=== PATIENT | female | born 1975 | race Caucasian/White ===

== ENCOUNTER 2020-06-02 10:59 | Outpatient (REF) | payer MEDICAID, SELFPAY ==
--- NOTE | 2020-06-02 | US_ITS ---
EXAMINATION: US PELVIS, COMPLETE CLINICAL INFORMATION: Leiomyoma of uterus. COMPARISON: None TECHNIQUE: Transabdominal and transvaginal imaging was performed. FINDINGS: LMP: 05/16/2020 Uterus is retroverted, measuring 10 x 5 x 6.2 cm. Hypoechoic focus measuring 1.2 x 1 x 1.2 cm in the posterior body myometrium, probable fibroid. Nabothian cysts in the cervix. Small fluid in the endometrial canal of the lower uterine segment. Endometrial thickness 0.6 cm. Right ovary measures 2.8 x 1.7 x 1.9 cm. Volume 4.7 mL. Left ovary measures 2.6 x 1.6 x 2.4 cm. Volume 5.2 mL. Complex 1.3 x 1.2 x 1 cm focus in the left ovary, probable corpus luteal cyst. Small free fluid in the cul-de-sac. US/US pelvic complete IMPRESSION: 1. Hypoechoic 1.2 x 1 x 1.2 cm myometrial focus, probable fibroid. 2. Small fluid in the lower uterine segment endometrial canal, nonspecific. 3. Left ovarian 1.3 cm complex cyst, probable corpus luteal cyst.
--- NOTE | 2020-06-02 | US_ITS ---
EXAMINATION: US PELVIS, COMPLETE CLINICAL INFORMATION: Leiomyoma of uterus. COMPARISON: None TECHNIQUE: Transabdominal and transvaginal imaging was performed. FINDINGS: LMP: 05/16/2020 Uterus is retroverted, measuring 10 x 5 x 6.2 cm. Hypoechoic focus measuring 1.2 x 1 x 1.2 cm in the posterior body myometrium, probable fibroid. Nabothian cysts in the cervix. Small fluid in the endometrial canal of the lower uterine segment. Endometrial thickness 0.6 cm. Right ovary measures 2.8 x 1.7 x 1.9 cm. Volume 4.7 mL. Left ovary measures 2.6 x 1.6 x 2.4 cm. Volume 5.2 mL. Complex 1.3 x 1.2 x 1 cm focus in the left ovary, probable corpus luteal cyst. Small free fluid in the cul-de-sac. US/US transvaginal IMPRESSION: 1. Hypoechoic 1.2 x 1 x 1.2 cm myometrial focus, probable fibroid. 2. Small fluid in the lower uterine segment endometrial canal, nonspecific. 3. Left ovarian 1.3 cm complex cyst, probable corpus luteal cyst.
--- NOTE | 2020-06-02 11:10 | XR_ITS ---
EXAMINATION: XR SCOLIOSIS CLINICAL INFORMATION: Scoliosis COMPARISON: Radiographs of the thoracic and lumbar spine 08/28/2019 TECHNIQUE: A single view of the thoracolumbar spine is obtained. FINDINGS: There are no intrinsic vertebral anomalies. There is a right convex curvature of the thoracic spine, apex at T8, measuring 42 degrees. There is a left convex curvature of the thoracolumbar spine, apex at L2, measuring 29 degrees. There is no significant pelvic tilt. Risser 5. XR/XR scoliosis survey IMPRESSION: Thoracolumbar scoliosis as above.
== END 2020-06-02 11:00 | disposition home or self-care (01) ==
LOC: HO.US 10:59
PROVIDERS: Absent Provider Physical Medicine & Rehabilitation; PCP Registered Nurse; Visit Provider Registered Nurse
DX: M41.9 Scoliosis, unspecified (principal); D25.9 Leiomyoma of uterus, unspecified; Z71.89 Other specified counseling
CPT/HCPCS: 72082; 76830; 76856

== ENCOUNTER 2020-06-10 10:36 | Outpatient (REF) | payer MEDICAID, SELFPAY ==
--- NOTE | 2020-06-10 10:40 | MM_ITS ---
EXAMINATION: MM SCREENING DIGITAL BREAST TOMOSYNTHESIS, BILATERAL CLINICAL INFORMATION: Screening. Asymptomatic. The lifetime risk of breast cancer based on the Tyrer-Cuzick Model is 8%. COMPARISON: Mammography: 12/04/2017 TECHNIQUE: Digital breast tomosynthesis is performed in both the craniocaudal and mediolateral oblique views along with computer-aided detection (CAD). Synthesized 2D images are generated from the tomosynthesis. FINDINGS: The breasts are heterogeneously dense, which may obscure small masses (ACR BI-RADS breast composition Category c). There is inhomogeneous fibrocystic interval pattern with multiple bilateral smooth and partially obscured round and oval areas of waxing and waning masses. There is no architectural abnormality or interval focal dominant significant mass. Again, there are numerous bilateral punctate and some scattered coarse calcifications in each breast. No interval focal abnormal calcifications. The bilateral axilla and skin contours are unremarkable. MM/MM tomosynthesis screening BI IMPRESSION: Fibrocystic parenchymal pattern with waxing and waning masses and diffuse bilateral calcifications again seen. ASSESSMENT: BI-RADS 2: Benign RECOMMENDATION: Routine annual mammography screening. This patient's information was entered into a reminder system with a target due date for their next mammogram.
== END 2020-06-10 10:37 | disposition home or self-care (01) ==
LOC: HO.MAMMO 10:36
PROVIDERS: PCP Registered Nurse; Visit Provider Registered Nurse
DX: Z12.31 Encounter for screening mammogram for malignant neoplasm of breast (principal)
CPT/HCPCS: 77063; 77067

== ENCOUNTER 2021-02-22 10:12 | Outpatient (REF) | payer MEDICAID, SELFPAY ==
--- NOTE | ~2021-02-22 | XR_ITS ---
EXAMINATION: XR CERVICAL SPINE CLINICAL INFORMATION: Cervical radiculopathy. COMPARISON: None TECHNIQUE: Frontal, odontoid, bilateral oblique and lateral views of the cervical spine were obtained. FINDINGS: Vertebral body heights are normal. There is reversal of the normal lordotic curvature. The disc spaces are well-maintained. No acute fracture or spondylolisthesis is seen. There is anterior spondylosis of the C5 and C6 lower endplates. The posterior elements are intact. The bilateral neural foramina appear patent on the oblique views. The dens and C7-T1 interface are normal. There is no prevertebral soft tissue swelling or gas XR/XR thoracic spine 2V IMPRESSION: 1. No acute fracture or spondylolisthesis is seen. 2. There is reversal of the normal lordotic curvature, which can be associated with muscle spasm. 3. The disc spaces are well-maintained. 4. There is mild anterior spondylosis of the C5 and C6 lower endplates. 5. The bilateral neural foramina appear patent. EXAMINATION: XR THORACIC SPINE CLINICAL INFORMATION: Dorsalgia. COMPARISON: Radiographs dated 08/28/2019. TECHNIQUE: AP and lateral views of the thoracic spine were obtained. FINDINGS: There is bony demineralization. Again, there is a marked thoracic dextroscoliosis, similar in extent to prior. Again, this shows a rotatory component. There is leftward disc space narrowing at C5-C6 and C6-C7. The remaining disc spaces are relatively well-maintained. No acute fracture or spondylolisthesis is seen. The posterior elements are intact. The soft tissue planes are unremarkable. IMPRESSION: A marked thoracic dextroscoliosis is redemonstrated.
--- NOTE | ~2021-02-22 | XR_ITS ---
EXAMINATION: XR CHEST 2 VIEWS CLINICAL INFORMATION: Solitary pulmonary nodule. COMPARISON: None. TECHNIQUE: Frontal and lateral views of the chest were obtained. FINDINGS: The heart, great vessels, pulmonary vasculature and mediastinum are normal. The lungs show no focal infiltrate, effusion or pneumothorax. No mass, nodule or lymphadenopathy is seen. There is no acute osseous abnormality. There is a marked thoracic dextroscoliosis. XR/XR chest 2V IMPRESSION: No active cardiopulmonary disease.
--- NOTE | ~2021-02-22 | XR_ITS ---
EXAMINATION: XR CERVICAL SPINE CLINICAL INFORMATION: Cervical radiculopathy. COMPARISON: None TECHNIQUE: Frontal, odontoid, bilateral oblique and lateral views of the cervical spine were obtained. FINDINGS: Vertebral body heights are normal. There is reversal of the normal lordotic curvature. The disc spaces are well-maintained. No acute fracture or spondylolisthesis is seen. There is anterior spondylosis of the C5 and C6 lower endplates. The posterior elements are intact. The bilateral neural foramina appear patent on the oblique views. The dens and C7-T1 interface are normal. There is no prevertebral soft tissue swelling or gas XR/XR cervical spine 4V IMPRESSION: 1. No acute fracture or spondylolisthesis is seen. 2. There is reversal of the normal lordotic curvature, which can be associated with muscle spasm. 3. The disc spaces are well-maintained. 4. There is mild anterior spondylosis of the C5 and C6 lower endplates. 5. The bilateral neural foramina appear patent. EXAMINATION: XR THORACIC SPINE CLINICAL INFORMATION: Dorsalgia. COMPARISON: Radiographs dated 08/28/2019. TECHNIQUE: AP and lateral views of the thoracic spine were obtained. FINDINGS: There is bony demineralization. Again, there is a marked thoracic dextroscoliosis, similar in extent to prior. Again, this shows a rotatory component. There is leftward disc space narrowing at C5-C6 and C6-C7. The remaining disc spaces are relatively well-maintained. No acute fracture or spondylolisthesis is seen. The posterior elements are intact. The soft tissue planes are unremarkable. IMPRESSION: A marked thoracic dextroscoliosis is redemonstrated.
== END 2021-02-22 10:13 | disposition home or self-care (01) ==
LOC: HO.XRAY 10:12
PROVIDERS: PCP Registered Nurse; Visit Provider Registered Nurse
DX: M54.12 Radiculopathy, cervical region (principal); M54.9 Dorsalgia, unspecified; R91.1 Solitary pulmonary nodule
CPT/HCPCS: 71046; 72050; 72070

== ENCOUNTER 2021-07-01 10:21 | Outpatient (REF) | payer MEDICAID, SELFPAY ==
--- NOTE | ~2021-07-01 | XR_ITS ---
EXAMINATION: XR CHEST CLINICAL INFORMATION: Post Covid 19 COMPARISON: 02/22/2021 TECHNIQUE: 2 views of the chest were obtained. FINDINGS: There is no evidence of acute parenchymal disease, pneumothorax, or pleural effusion. Heart normal size. No evidence of pulmonary edema. There is significant scoliosis of the thoracic spine convex right. XR/XR chest 2V IMPRESSION: No acute parenchymal disease. Scoliosis.
== END 2021-07-01 10:22 | disposition home or self-care (01) ==
LOC: HO.XRAY 10:21
PROVIDERS: PCP General Practice; Visit Provider General Practice
DX: U09.9 Post COVID-19 condition, unspecified (principal)
CPT/HCPCS: 71046

== ENCOUNTER 2024-08-19 11:08 | Outpatient (REF) | payer MEDICAID, SELFPAY ==
--- OUTSIDE RECORDS SUMMARY | 2024-08-19 12:22 | XMS_ITS | Encounter Summary ---
Author Organization [facility] Address [address] [facility] 7[address] [place] [address] Care Team Providers Care Floor Coverer Apprentice Name Role Phone Lelia Marshall MD Primary Care Provider [phone] Reason for Visit * Reason Onset Date Comments Med Refill 03/26/2024 Encounter Details Date Type Department Care Team (Late st Contact Info) Description 03/26/[address] [facility] [address] [place], [place] [phone] Stephen Kirk MD [address] [place] [address] Acute left-sided low back pain without sciatica Social History Tobacco Use Types Packs/Day Years Used Date Smoking Tobacco: Never Passive Smoke Exposure: Never Smokeless Tobacco: Never Alcohol Use Standard Drinks/Week Comments Never 0 (1 standard drink = 0.6 oz pur e alcohol) Housing Stability Answer Date Recorded What is your housing situation today? I have kerrie chin 05/08/[address] you li ve. Do you have problems with any of the following? None of the above 05/08/2023 Food Insecurity Answer Date Recorded Within the past 12 months, y ou worried that your food would run out before you got money to buy more: Never True 05/08/2023 Within the past 12 months,th e food you bought just didn't last and you didn't have enough money to get more: Never True Transportation Answer Date Recorded In the past 12 months, has l ack of transportation kept you from medical appts, meetings, work or from getting things needed for daily living? No 05/08/2023 Utilities Answer Date Recorded In the past 12 months, has t he electric, gas, oil or water company threatened to shut off services in your home? No 05/08/2023 Comments Unknown Sex and Gender Information Value Date Recorded Sex Assigned at Female 05/22/2022 10:33 AM EDT Legal Sex Female 10:33 AM EDT Gender Identity Female 05/22/2022 10:33 AM EDT Sexual Orientation Straight 05/22/2022 10 :33 AM EDT documented as of this encounter Plan of Treatment Upcoming Encounters Date Type Department Care Team (Late st Contact Info) Description 10/10/2024 9:45 AM EDT Procedure Visit [facility] [address] [place], [place] [phone] Lelia Marshall MD [address] [place] [address] documented as of this encounter Visit Diagnoses Diagnosis Acute left-sided low back pain without sciatica documented in this encounter Care Teams Floor Coverer Apprentice Relationship Specialty Start Date End Date Lelia Marshall MD [address] [place] [id number] PCP - General Family Medicine 03/14/21 documented as of this encounter
--- OUTSIDE RECORDS SUMMARY | 2024-08-19 12:22 | XMS_ITS | Encounter Summary ---
Author Organization [facility] Address [address] [facility] [address] [place] [address] Care Team Providers Care Lcsw Name Role Phone Lelia Marshall MD Primary Care Provider [phone] Reason for Visit * Reason Onset Date Comments Med Refill 08/07/2023 Encounter Details Date Type Department Care Team ([facility] st Contact Info) Description 08/07/2023 Refill [facility] [address] [place], [place] [phone] Andreina Haley MD [address] [place] [address] Social History Tobacco Use Types Packs/Day Years [...] 9:45 AM EDT Procedure Visit [facility] [address] [place] [address] Lelia Marshall MD [address] [place] [phone] documented as of this encounter Visit Diagnoses Not on filedocumented in this encounter Care Teams Lcsw Relationship Specialty Start Date End Date Lelia Marshall MD [address] [place] [id number] PCP - General Family Medicine 03/14/21 documented as of this encounter
--- OUTSIDE RECORDS SUMMARY | 2024-08-19 12:22 | XMS_ITS | Clinical Summary ---
Author Organization [employer] Address [address] [facility] [address] [place] [address] Care Team Providers Care Associate Art Director Name Role Phone Lelia Marshall MD Primary Care Provider [phone] Allergies No known active allergies Medications fluticasone (Flonase) 50 MCG/ACT nasal sprayIndication s:Bronchitis INSTILL 2 SPRAYS IN EACH NOSTRIL ONCE DAILY IN THE MORNING 48 g 1 05/08/20 23 Active Mometasone Furoate (Asmanex HFA) 200 MCG/ACT aerosol Use 2 puffs BID 13 g 11 10/22/19 24 Active loratadine (Claritin) 10 MG tablet TAKE 1 TABLET BY MOUTH EVERY DAY FOR NASAL CONGESTION 90 tablet 3 12/31/19 24 Active cyclobenzaprine (Flexeril) 10 MG tabletIndicatio ns:Acute left-sided low back pain without sciatica Take 1 tablet (10 mg) by mouth if needed in the morning, at noon, and at bedtime for muscle spasms for up to 7 days. 21 tablet 01/25/20 24 Active SUMAtriptan (Imitrex) 50 MG tabletIndicatio ns:Migraine without status migrainosus, not intractable, unspecified migraine type TAKE 1 TABLET BY MOUTH AT ONSET OF MIGRAINE. MAY REPEAT ONCE AFTER 2 HOURS IF NEEDED DO NOT EXCEED 4 TABLETS / 24 HOURS 15 tablet 5 02/15/20 24 Active naproxen (Naprosyn) 500 MG tabletIndicatio ns:Acute left-sided low back pain without sciatica TAKE 1 TABLET BY MOUTH TWICE DAILY IN THE MORNING AND AT BEDTIME NEEDED FOR PAIN 60 tablet 1 04/25/20 24 Active guaiFENesin (Mucinex) 600 MG 12 hr tablet Take 1 tablet (600 mg) by mouth 2 times daily. Do not crush, chew, or split. 60 tablet 08/19/19 25 025 Active azithromycin (Zithromax) 250 MG tablet Take 1 tablet (250 mg) by mouth Once per day for 5 days. Take two tablets on the first day of treatment, and one tablet for days 2-5 6 tablet 08/19/19 25 025 Active estradiol (Estrace) 0.1 MG/GM vaginal cream Insert 1 g into the vagina Once per day. 42.5 g 2 08/19/19 25 025 Active buPROPion XL (Wellbutrin XL) 150 MG 24 hr tablet Take 1 tablet (150 mg) by mouth Once per day. For libido 30 tablet 11 08/19/19 026 Active busPIRone (Buspar) 5 MG tablet take 1 tablet by oral route up to 3 times every day as needed for anxiety 02/14/20 025 Discontin ued(Thera py completed ) diclofenac (Cataflam) 50 MG tablet Take 1 tablet by mouth every 12 (twelve) hours. 025 Discontin ued(Thera py completed ) PARoxetine (Paxil) 20 MG tablet Take 1 tablet by mouth at bed time. 11/26/19 025 Discontin ued(Thera py completed ) topiramate 50 MG tablet Take 1 tablet by mouth at bedtime. 09/19/19 025 Discontin ued(Thera py completed ) albuterol (Proventil HFA) 108 (90 Base) MCG/ACT inhalerIndicati ons:Acute cough INHALE 2 PUFFS EVERY 6 HOURS NEEDED FOR WHEEZING 6.7 g 08/28/19 025 Discontin ued(Thera py completed ) Nirmatrelvir&Ri tonavir 300/100 (Paxlovid, 300/100,) 20 x 150 MG & 10 x 100MG tablet therapy packIndications :Infection caused by 2019 Novel Coronavirus Take 3 tablets by mouth 2 times daily. Take 2 tabs (300mg of nirmatrelvir) and 1 tab (100mg of ritonavir) PO BID for 5 days. No renal failure. Possible medication interactions reviewed. 30 each 05/14/20 23 025 Discontin ued(Thera py completed ) pseudoephedrine (Sudafed) 30 MG tablet Take 1 tablet (30 mg) by mouth every 4 (four) hours if needed for congestion for up to 10 days. 30 tablet 10/22/19 24 025 Discontin ued(Thera py completed ) DULoxetine (Cymbalta) [address] capsule TAKE 1 CAPSULE BY MOUTH EVERY MORNING, DO NOT BREAK, CRUSH, DISSOLVE OR CHEW 90 capsule 3 11/28/19 24 025 Discontin ued(Thera py completed ) amLODIPine (Norvasc) 2.5 MG tablet Take 1 tablet (2.5 mg) by mouth in the morning. 90 tablet 3 12/31/19 24 025 Discontin ued(Thera py completed ) Active Problems Problem Noted Date Diagnosed Date Fibromyalgia 10/30/2022 Assessment & Plan (10/30/2022 10:37 AM EDT): Painting more of fibromyalgia picture now with history and exam encompassing more regions/areas of body Fatigue Exercise intolerance Trial of Cymbalta 20mg daily Palpitations 10/30/2022 Assessment & Plan (10/30/2022 10:38 AM EDT): Check TSH and CBC Essential hypertension 10/30/2022 Assessment & Plan (10/30/2022 10:39 AM EDT): Monitor at home daily Start Amlodipine 2.5mg daily Restrictive lung disease 07/12/2022 Assessment & Plan (10/30/2022 10:36 AM EDT): Need to obtain PFTs Pt says she had abnl testing at [facility] in 2019 or 2020 History of severe acute resp iratory syndrome coronavirus 2 (SARS-CoV-2) disease 06/29/2021 Normal mammography 06/13/2021 Depressive disorder 03/30/2021 Assessment & Plan (10/30/2022 10:38 AM EDT): Cymbalta trial for suspected fibromyalgia may be helpful for depression as well Migraine 03/16/2021 Cervical radiculopathy 12/26/2017 Idiopathic scoliosis 11/20/2017 Thoracic back pain 11/20/2017 Uterine leiomyoma 11/20/2017 Encounters Date Type Department Care Team Description 08/19/2024 10:15 AM EST Office Visit [facility] [address] [place] [address] Lelia Marshall MD Screening examination for sexually transmitted disease (Primary Dx); Encounter for immunization; Encounter for screening mammogram for malignant neoplasm of breast 08/19/2024 Telephone [facility] [address] [place] [address] Hazel Oconnor RN 08/19/2024 Travel from Last 3 Months Immunizations Name Administration Dates Next Due Influenza injectable quadriv alent preservative free 07/25/2021,07/13/2020 Influenza, seasonal, injecta ble, preservative free 08/19/2024 Pfizer Covid-19 Vaccine 12+ 09/01/2021, 1,02/01/2021 Tdap 07/13/2020 Family History Medical History Relation Name Comments Osteoporosis Mother Relation Name Status Comments Mother Social History Tobacco Use Types Packs/Day Years Used Date Smoking Tobacco: Never Passive Smoke Exposure: Never Smokeless Tobacco: Never Tobacco Cessation:Counseling Given: Not Answered Alcohol Use Standard Drinks/Week Comments Never 0 [...] services in your home? No 05/08/2023 Comments No Sex and Gender Information Value Date Recorded Sex Assigned at Female 05/22/2022 10:33 AM EDT Legal Sex Female 10:33 AM EDT Gender Identity Female 05/22/2022 10:33 AM EDT Sexual Orientation Straight 05/22/2022 10 :33 AM EDT Last Filed Vital Signs Vital Sign Reading Time Taken Comments Blood Pressure 125/86 08/19/2024 10:16 AM EST Pulse 107 08/19/2024 10:16 AM EST Temperature 36.4 ??C (97.6 ??F) 08/19/2024 10:[address] Respiratory Rate 20 08/19/2024 10:16 AM EST Oxygen Saturation 98% 08/19/2024 10:16 AM EST Inhaled Oxygen Concentration - - Weight 76.4 kg (168 lb 8 oz) 08/19/2024 10:16 AM EST Height 167.6 cm (5' 6 ) 08/19/2024 10:16 AM EST Body Mass Index 27.2 08/19/2024 10:16 AM EST Plan of Treatment Upcoming Encounters Date Type Department Care Team (Late st Contact Info) Description 10/10/2024 9:45 AM EDT Procedure Visit [facility] [address] [place] [address] Lelia Marshall MD [address] [place] [address] Health Maintenance Due Date Last Done Comments CT Colonography 1976 Colonoscopy 1976 Colorectal Cancer Screening 1976 Depression Screening 1976 FIT DNA/Cologuard 1976 FIT 1976 FOBT 1976 HIV Screening 1976 Sigmoidoscopy 1976 Alcohol/Substance Use Screening 1988 Family Planning (PISQ) 12/01/1991 Hepatitis C Screening 1994 Hepatitis B Vaccines (1 of 3 - 19+ 3-dose series) 12/01/1995 Pap Smear 1997 Cervical Cancer Screening 2006 HPV/Cotest 2006 Mammogram 06/10/2022 06/10/2020, 06/10/2020, 12/05/2017 SDOH Screening 07/12/2023 07/12/2022 COVID-19 Vaccine (4 - 2023-2 5 season) 2024 09/01/2021, 02/22/2021, 02/01/2021 Tobacco Screening 08/19/2025 08/19/2024 Lipid Panel 02/03/2026 02/03/2021 Zoster Vaccines (1 of 2) 2026 DTaP/Tdap/Td Vaccines (2 - T d or Tdap) 07/13/2030 07/13/2020 RSV Patients and Patients Aged 60 years or older (1 - 1-dose 75+ series) 12/01/2051 Influenza Vaccine Completed 08/19/2024, 07/25/2021, 07/13/2020 HIB Vaccines Aged Out No longer eligi ble based on patient's age to complete this topic HPV Vaccines Aged Out No longer eligi ble based on patient's age to complete this topic Hepatitis A Vaccines Aged Out No long er eligible based on patient's age to complete this topic IPV Vaccines Aged Out No longer eligi ble based on patient's age to complete this topic Meningococcal Vaccine Aged Out No vignesh abel eligible based on patient's age to complete this topic Pneumococcal Vaccine: Pediatrics (0 to 5 Years) and At-Risk Patients (6 to 64 Years) Aged Out No longer eligible b ased on patient's age to complete this topic RSV under 20 months Aged Out No longe r eligible based on patient's age to complete this topic Rotavirus Vaccines Aged Out No longer eligible based on patient's age to complete this topic Procedures Procedure Name Priority Date/Time Associated Diagnosis Comments LIPID PANEL, STANDARD Routine 02/03/2021 9:09 AM EDT MAMMOGRAM GENERIC Routine 06/10/2020 10: 40 AM EST from Last 3 Months or Most Recently Relevant to Health Maintenance Results * (ABNORMAL) LIPID PANEL, STANDARD (02/03/2021 9:09 AM EDT) Chol/HDLC Ratio 2.4 <5.0 (calc) [facility] Cholesterol, Total 205(H) <200 mg/dL [facility] HDL Cholesterol 87 > OR = 50 mg/dL [facility] LDL Cholesterol 102(H) mg/dL (calc) [facility] Comment: Reference range: <100 ?? Desirable range <100 mg/dL for primary prevention; ?? <70 mg/dL for patients with CHD or diabetic patients ?? with > or = 2 CHD risk factors. ?? LDL-C is now calculated using the Betsy ?? calculation, which is a validated novel method providing ?? better accuracy than the Friedewald equation in the ?? estimation of LDL-C. ?? Jeferson PANG et al. VERÓNICA. 2013;310(19): 0554-7066 ?? (http://Bitstamp.Kiyon/faq/NBV976) Non-HDL Cholesterol 118 <130 mg/dL (calc) [facility] Comment: For patients with diabetes plus 1 major ASCVD risk ?? factor, treating to a non-HDL-C goal of <100 mg/dL ?? (LDL-C of <70 mg/dL) is considered a therapeutic ?? option. Triglycerides 73 <150 mg/dL [facility] 02/03/2021 9:09 AM EDT us Historical Provider LAB BLOOD ORDERABLES Dionna damon Result [facility] [address] * Mammography Report 1 (06/10/2020 10:40 AM EST) Anatomical Region Laterality Modality Breast Bilateral Mammography 06/10/2020 10:4 0 AM EST Narrative 06/13/2021 10:56 AM EST Refer to the Notes tab for result details [facility] Procedure: Mammography Report 1 Procedure Note Provider, MD Melissa - 10/14/2022 Refer to the Notes tab for result details [facility] Procedure: Mammography Report 1 us Lelia Marshall MD IMG BI PROCEDURES Final Result from Last 3 Months or Most Recently Relevant to Health Maintenance Insurance [facility] C3 Care Teams Associate Art Director Relationship Specialty Start Date End Date Lelia Marshall MD [address] [place] [id number] PCP - General Family Medicine 03/14/21
--- OUTSIDE RECORDS SUMMARY | 2024-08-19 12:22 | XMS_ITS | Encounter Summary ---
Author Organization [email or web address] Address 75 [facility] 7t [place] [address] Care Team Providers Care Casing In Line Setter Name Role Phone Lelia Marshall MD Primary Care Provider [phone] Reason for Visit * Reason Onset Date Comments Med Refill 08/07/2023 Encounter Details Date Type Department Care Team (Late st Contact Info) Description 08/07/2023 Refill [facility] MED & PEDS [address] [place] [address] Lelia Marshall MD [address] [place] [address] Migraine without status migrainosus, not intractable, unspecified migraine type Social History Tobacco Use Types Packs/Day Years [...] Description 10/10/2024 9:45 AM EDT Procedure Visit [facility] MEDICINE 230 [place], [place] [phone] Lelia Marshall MD [address] [place] [address] documented as of this encounter Visit Diagnoses Diagnosis Migraine without status migrainosus, not intractable, unspecified migraine type documented in this encounter Care Teams Casing In Line Setter Relationship Specialty Start Date End Date Lelia Marshall MD [address] [place], [place] [phone] PCP - General Family Medicine 03/14/21 documented as of this encounter
--- OUTSIDE RECORDS SUMMARY | 2024-08-19 12:22 | XMS_ITS | Encounter Summary ---
Author Organization [facility] Address 75 [facility] 7t [place] [address] Care Team Providers Care Block Splitter Operator Name Role Phone Lelia Marshall MD Primary Care Provider [phone] Reason for Referral * Imaging (Routine) - Closed Specialty Diagnoses / Procedures Referred By Contbelen t Referred To Contact Radiology Diagnoses Encounter for screening mammogram for malignant neoplasm of breast Procedures BI Mammogram Screening Tomosynthesis Bilateral Lelia Marshall MD [address] [place] [address] Phone: tel: fax: [facility] Referral ID Status Reason Start Date Expiration Date Visits Re quested Visits Authorized [id number] Closed 08/19/2024 08/19/2025 1 1 Reason for Visit * Reason Comments Mood Swings Encounter Details Date Type Department Care Team (Late st Contact Info) Description 08/19/2024 10:15 AM EST Office Visit [facility] MED[facility] 230 [place], [place] [phone] Lelia Marshall MD [address] [place], [place] [phone] Screening examination for sexually transmitted disease (Primary Dx); Encounter for immunization; Encounter for screening mammogram for malignant neoplasm of breast Social History Tobacco Use Types Packs/Day Years [...] AM EDT documented as of this encounter Last Filed Vital Signs Vital Sign Reading [...] Mass Index 27.2 08/19/2024 10:16 AM EST documented in this encounter Plan of Treatment Upcoming Encounters Date Type Department Care Team (Late st Contact Info) Description 10/10/2024 9:45 AM EDT Procedure Visit [facility] MED[facility] [address] [place] [address] Lelia Marshall MD 230 [place] [address] Scheduled Orders Name Type Priority Associated Diagnoses Orde r Schedule Hepatitis C Antibody with Reflex to HCV, RNA, Quantitative, Real-Time PCR Lab Routine Screening examination for sexually transmitted disease Expected: 08/19/2024, Expires: 08/19/2025 HIV-1/2 Antigen and Antibodies, Fourth Generation, with Reflexes Lab Routine Screening examination for sexually transmitted disease Expected: 08/19/2024 (Approximate), Expires: 08/19/2025 BI Mammogram Screening Tomosynthesis Bilateral Imaging Routine Encounter for screening mammogram for malignant neoplasm of breast Expected: 08/19/2024, Expires: 10/17/2025 documented as of this encounter Visit Diagnoses Diagnosis Screening examination for sexually transmitted disease- Primary Encounter for immunization Encounter for screening mammogram for malignant neoplasm of breast documented in this encounter Care Teams Block Splitter Operator Relationship Specialty Start Date End Date Lelia Marshall MD [address] [place] [address] PCP - General Family Medicine 03/14/21 documented as of this encounter
--- OUTSIDE RECORDS SUMMARY | 2024-08-19 12:22 | XMS_ITS | Encounter Summary ---
Author Organization [facility] Address [address] [facility] [address] 7t [place] [address] Care Team Providers Care Grounds Maintenance Worker Name Role Phone Lelia Marshall MD Primary Care Provider [phone] Encounter Details Date Type Department Care Team (Latest Contact Info) Description 08/19/2024 Travel Social History Tobacco Use Types Packs/Day Years Used Date Smoking Tobacco: Never Passive Smoke Exposure: Never Smokeless Tobacco: Never Alcohol Use Standard Drinks/Week Comments Never 0 (1 standard drink = 0.6 oz pur e alcohol) Housing Stability Answer Date Recorded What is your housing situation today? I have kerriedaniel chin 05/08/[address] you [...] Description 10/10/2024 9:45 AM EDT Procedure Visit [facility] MEDICINE 230 [place] [address] Lelia Marshall MD [address] [place] [address] documented as of this encounter Visit Diagnoses Not on filedocumented in this encounter Care Teams Grounds Maintenance Worker Relationship Specialty Start Date End Date Lelia Marshall MD [address] [place], [place] [phone] PCP - General Family Medicine 03/14/21 documented as of this encounter
--- OUTSIDE RECORDS SUMMARY | 2024-08-19 12:22 | XMS_ITS | Encounter Summary ---
Author Organization [facility] Address [address] [facility] 7t [place] [address] Care Team Providers Care Feather Washer Name Role Phone Lelia Marshall MD Primary Care Provider [phone] Reason for Visit * Reason Onset Date Comments Med Refill 08/07/2023 Encounter Details Date Type Department Care Team ([facility] st Contact Info) Description 08/07/2023 Refill [facility] [address] [place], [place] [phone] Roshni Hinds FNP [address] [place] [address] Social History Tobacco Use Types Packs/Day Years [...] Description 10/10/2024 9:45 AM EDT Procedure Visit [facility] MEDICINE [address] [place] [address] Lelia Marshall MD 230 [place] [address] documented as of this encounter Visit Diagnoses Not on filedocumented in this encounter Care Teams Feather Washer Relationship Specialty Start Date End Date Lelia Marshall MD [address] [place] [address] PCP - General Family Medicine 03/14/21 documented as of this encounter
--- OUTSIDE RECORDS SUMMARY | 2024-08-19 12:22 | XMS_ITS | Encounter Summary ---
Author Organization [facility] Address [address] [facility] [address] 7[address] [place] [address] Care Team Providers Care Shredder Operator Name Role Phone Lelia Marshall MD Primary Care Provider [phone] Encounter Details Date Type Department Care Team ([facility] st Contact Info) Description 08/19/2024 Telephone [facility] MEDICINE [address] [place] [address] Hazel Oconnor, RN Social History Tobacco Use Types Packs/Day Years [...] AM EDT documented as of this encounter Miscellaneous Notes * Telephone Encounter - Hazel Oconnor RN - 08/19/2024 11:53 AM EST Incoming TC from [facility] pharmacy staff regarding prescription sent for estradiol (Estrace) 0.1 MG/GM vaginal cream. Pharmacy staff states typically the prescription is 1 g every day for 2 weeks and thendecreases to 3 times weekly. [facility] pharmacy staff wants to confirm the script should be 1 g daily andfor refills. Message sent to PCP to review and advise. documented in this encounter Plan of Treatment Upcoming Encounters Date Type Department Care Team (Late st Contact Info) Description 10/10/2024 9:45 AM EDT Procedure Visit [facility] MEDICINE [address] [place] [address] Lelia Marshall MD [address] [place] [address] documented as of this encounter Visit Diagnoses Not on filedocumented in this encounter Care Teams Shredder Operator Relationship Specialty Start Date End Date Lelia Marshall MD [address] [place] [address] PCP - General Family Medicine 03/14/21 documented as of this encounter
[2024-08-19 14:21] LABS: HIV AB/AG Nonreactive (Nonreactive); HIV Num 1 0.05 S/CO (0.00-0.99); ~HepC Num1 0.12 S/CO (0.00-0.79); ~Hepatitis C Antibody Nonreactive (Nonreactive)
== END 2024-08-19 11:09 | disposition home or self-care (01) ==
LOC: HO.HHCL 11:08
PROVIDERS: Visit Provider General Practice
DX: Z11.3 Encounter for screening for infections with a predominantly sexual mode of transmission (principal); Z11.4 Encounter for screening for human immunodeficiency virus [HIV]
CPT/HCPCS: 36415; 86803; 87389

== ENCOUNTER 2024-12-03 14:02 | Outpatient (AMB) | payer MEDICAID, SELFPAY ==
--- OUTSIDE RECORDS SUMMARY | 2024-12-03 14:05 | XMS_ITS | Clinical Summary ---
Author Organization [employer] Address [address] [facility] 7t [place] [address] Care Team Providers Care Church Supervisor Name Role Phone Lelia Marshall MD Primary Care Provider [phone] Allergies No known active allergies Medications fluticasone (Flonase) 50 MCG/ACT nasal sprayIndication s:Bronchitis INSTILL 2 SPRAYS IN EACH NOSTRIL ONCE DAILY IN THE MORNING 48 g 1 05/08/20 23 Active loratadine (Claritin) 10 MG tablet TAKE [...] 7 days. 21 tablet 01/25/20 24 Active estradiol (Estrace) 0.1 MG/GM vaginal cream Insert 1 g into the vagina Once per day. 42.5 g 2 08/19/19 25 025 Active buPROPion XL (Wellbutrin XL) 150 MG 24 hr tablet Take 1 tablet (150 mg) by mouth Once per day. For libido 30 tablet 11 08/19/19 25 026 Active SUMAtriptan (Imitrex) 50 MG tabletIndicatio ns:Migraine without status migrainosus, not intractable, unspecified migraine type TAKE 1 TABLET BY MOUTH AT ONSET OF MIGRAINE. MAY REPEAT ONCE AFTER 2 HOURS IF NEEDED. DO NOT EXCEED 4 TABLETS PER 24 HOURS. 15 tablet 5 08/21/19 25 Active naproxen (Naprosyn) 500 MG tabletIndicatio ns:Acute left-sided low back pain without sciatica TAKE 1 TABLET BY MOUTH TWICE DAILY EVERY MORNING AND AT BEDTIME NEEDED (for pain) 46 tablet 1 09/15/19 25 Active Mometasone Furoate (Asmanex HFA) 200 MCG/ACT aerosol INHALE 2 PUFFS TWICE DAILY. RINSE MOUTH AFTER USING. 13 g 11 12/03/19 25 Active Mometasone Furoate (Asmanex HFA) 200 MCG/ACT aerosol Use 2 puffs BID 13 g 11 10/22/19 24 025 Discontinued Active Problems Problem Noted Date Diagnosed Date Low libido 08/23/2024 Assessment & Plan (08/23/2024 8:24 AM EST): Start Wellbutrin 150XL daily Fibromyalgia 10/30/2022 Assessment & Plan (10/30/2022 10:37 AM EDT): Painting more of fibromyalgia picture now with history and exam encompassing more regions/areas of body Fatigue Exercise intolerance Trial of Cymbalta 20mg daily Palpitations 10/30/2022 Assessment & Plan (10/30/2022 10:38 AM EDT): Check TSH and CBC Essential hypertension 10/30/2022 Assessment & Plan (08/23/2024 8:24 AM EST): Managed with diet and exercise Stop Amlodipine Assessment & Plan (10/30/2022 10:39 AM EDT): Monitor at home daily Start Amlodipine 2.5mg daily Restrictive lung disease 07/12/2022 Assessment & Plan (10/30/2022 10:36 AM EDT): Need to obtain PFTs Pt says she had abnl testing at [facility] in 2019 or 2020 Normal mammography 06/13/2021 Depressive disorder 03/30/2021 Assessment & Plan (10/30/2022 10:38 AM EDT): Cymbalta trial for suspected fibromyalgia may be helpful for depression as well Migraine 03/16/2021 Cervical radiculopathy 12/26/2017 Idiopathic scoliosis 11/20/2017 Thoracic back pain 11/20/2017 Uterine leiomyoma 11/20/2017 Resolved Problems Problem Noted Date Diagnosed Date Resolved Date History of severe acute resp iratory syndrome coronavirus 2 (SARS-CoV-2) disease 06/29/202108/23 Encounters Date Type Department Care Team Description 12/01/2024 Refill [facility] [address] [place], [place] [phone] Cat Browning MD 10/03/2024 Population Health Risk Score Community [facility] (C[facility]) Department [address] [phone] Provider, Population Health Generic 09/23/2024 Telephone [facility] [address] [place], [place] [phone] Lelia Marshall MD Order 09/14/2024 Refill [facility] [address] [place], [place] [phone] Lelia Marshall MD Acute left-sided low back pain without sciatica from Last 3 Months Immunizations Immunization Administration Dates Next Due Influenza injectable quadriv [...] Care Team (Late st Contact Info) Description 12/04/2024 10:30 AM EDT Office Visit [facility] OPT[facility] [address] [place] [address] Lilly Hoffmann, OD [address] [place] [address] Health Maintenance Due Date Last Done Comments CT Colonography 1976 Colonoscopy 1976 Colorectal Cancer Screening 1976 Depression Screening 1976 FIT DNA/Cologuard 1976 FIT 1976 FOBT 1976 Sigmoidoscopy 1976 Alcohol/Substance Use Screening 1988 Hepatitis B Vaccines (1 of 3 - 19+ 3-dose series) 12/01/1995 Pap Smear 1997 Cervical Cancer Screening 2006 HPV/Cotest 2006 Mammogram 06/10/2022 06/10/2020, 06/10/2020, 12/05/2017 SDOH Screening 07/12/2023 07/12/2022 COVID-19 Vaccine (4 - 2023-2 5 season) 2024 09/01/2021, 02/22/2021, 02/01/2021 Tobacco Screening 08/19/2025 08/19/2024 Family Planning (PISQ) 08/23/2025 08/23/2024 Lipid Panel 02/03/2026 02/03/2021 Zoster Vaccines (1 of 2) 2026 DTaP/Tdap/Td Vaccines (2 - T d or Tdap) 07/13/2030 07/13/2020 RSV Patients and Patients Aged 60 years or older (1 - 1-dose 75+ series) 12/01/2051 HIV Screening Completed 08/19/2024 Hepatitis C Screening Completed 08/19/2024 Influenza Vaccine Completed 08/19/2024, 07/25/2021, 07/13/2020 HIB [...] patient's age to complete this topic Meningococcal B Vaccine Aged Out No l onger eligible based on patient's age to complete this topic Meningococcal Vaccine Aged Out No vignesh abel eligible based on patient's age to complete this topic Pneumococcal Vaccine: Pediatrics (0 to 5 Years) and At-Risk Patients (6 to 49) Years) Aged Out No longer eligible b ased on patient's age to complete this topic RSV under 20 months Aged Out No longe r eligible based on patient's age to complete this topic Rotavirus Vaccines Aged Out No longer eligible based on patient's age to complete this topic Procedures Procedure Name Priority Date/Time Associated Diagnosis Comments HEPATITIS C AB W/REFL TO HCV RNA, QN, PCR Routine 08/19/2024 11:10 AM EST Screening examination for sexually transmitted disease HIV 1/2 ANTIGEN/ANTIBODY, FOURTH GENERATION W/RFL Routine 08/19/2024 11:10 AM EST Screening examination for sexually transmitted disease LIPID PANEL, STANDARD Routine 02/03/2021 9:09 AM EDT MAMMOGRAM GENERIC Routine 06/10/2020 10: 40 AM EST from Last 3 Months or Most Recently Relevant to Health Maintenance Results * Hepatitis C Antibody with Reflex to HCV, RNA, Quantitative, Real-Time PCR (08/19/2024 11:10 AM EST) Hepatitis C Antibody Nonreactive Nonreactive [facility] Comment:Antibodies to HCV no t detected; does not exclude early acuteHCV infection. Blood Venous blood specimen / Unknown 08/19/2024 11:10 AM EST 08/19/2024 1:22 PM EST us Lelia Marshall MD LAB BLOOD ORDERABLES Final Res ult [facility] [address] [place] [phone] * HIV-1/2 Antigen and Antibodies, Fourth Generation, with Reflexes (08/19/2024 11:10 AM EST) HIV AB/AG Nonreactive Nonreactive [facility] Comment:HIV-1 p24 Ag and/or HIV-1/HIV-2 Ab not detected.A test result that is nonreactive does not exclude thepossibility of exposure to or infection with HIV-1 and/orHIV-2. Nonreactive results in this assay for individualswith prior exposure to HIV-1 and/or HIV-2 may be due toantigen and antibody levels that are below the limit ofdetection of this assay.The [employer] HIV Ag/Ab Combo assay result andsupplemental assay results should be interpreted inconjunction with the patient's clinical presentation,history and other laboratory results. If the results areinconsistent with clinical evidence, additional testing issuggested to confirm the result. Blood Venous blood specimen / Unknown 08/19/2024 11:10 AM EST 08/19/2024 1:22 PM EST Lelia Marshall MD LAB BLOOD ORDERABLES Final Res ult Performing Organization Address [facility]/ZIP Co de Phone Number [facility] [address] [place] [phone] * (ABNORMAL) LIPID PANEL, STANDARD (02/03/2021 9:09 AM EDT) Chol/HDLC Ratio 2.4 <5.0 (calc) [facility] Cholesterol, Total 205(H) <200 mg/dL [...] ?? LDL-C is now calculated using the Jeferson-Rod ?? calculation, which is a validated novel method providing ?? better accuracy than the Friedewald equation in the ?? estimation of LDL-C. ?? Jeferson PANG et al. VERÓNICA. 2013;310(19): 4456-5822 ?? (http://education.[employer]/faq/DEW877) Non-HDL Cholesterol 118 <130 mg/dL (calc) [facility] Comment: For patients with diabetes plus 1 major ASCVD risk ?? factor, treating to a non-HDL-C goal of <100 mg/dL ?? (LDL-C of <70 mg/dL) is considered a therapeutic ?? option. Triglycerides 73 <150 mg/dL [facility] 02/03/2021 9:09 AM EDT us Historical Provider LAB BLOOD ORDERABLES Dionna l Result [facility] [address] * Mammography Report 1 (06/10/2020 10:40 AM EST) Anatomical Region Laterality Modality Breast Bilateral Mammography 06/10/2020 10:4 0 AM EST Narrative 06/13/2021 10:56 AM EST Refer to the Notes tab for result details [facility] Procedure: Mammography Report 1 Procedure Note Provider, MD Melissa - 10/14/2022 Refer to the Notes tab for result details [facility] Procedure: Mammography Report 1 Lelia Marshall MD IMG BI PROCEDURES Final Result from Last 3 Months or Most Recently Relevant to Health Maintenance Insurance [employer]3 Care Teams Church Supervisor Relationship Specialty Start Date End Date Lelia Marshall MD [address] [place] [phone] PCP - General Family Medicine 03/14/21
--- NOTE | 2024-12-03 14:06 | MHC.OFFVIS ---
Vital Signs 12/03/24 14:16 Height 5 ft 3 in Weight 162 lb BMI 28.7 BP 136/68 Blood Pressure Location Rt brachial Position Sitting Pulse 92 Pulse Source Pulse Oximeter Pulse Oximetry (%) 100 Oxygen Delivery Method Room Air Intake Visit Reasons: [facility] screening Intake Note: NEW PATIENT for initial colo screening. CC; Initial colo, routine per PCP. Pt denies any GI sx at this time. City Letter Carrier Required: Yes City Letter Carrier Services: City Letter Carrier Present City Letter Carrier Name: [place] [phone] Information Interpreted: clinical only Accompanied by: Self / Same As Patient Allergies No Known Allergies Allergy (Verified 12/03/24 14:07) HPI HPI [facility] screening: Details: 49 year old? female with past medical history of an anxiety, depression hypertension, migraine headaches is here today for pre colonoscopy screening.? Patient was sent to us by her PCP.? This is her first colonoscopy screening.? Patient denies any gastrointestinal symptoms in the past or at present.? Denies any personal or family history of gastrointestinal disease, colon polyps, or CRC.? Denies history of difficulty with sedation or anesthesia in the past.? Negative for history of sleep apnea.? Denies any history of cardiac, renal, pulmonary, or hepatic disease.?? No history of infectious? diseases like hepatitis A, B, C, HIV or tuberculosis.? Patient is not on any anticoagulation [facility] Medical History (Updated 12/03/24 @ 14:20 by JAVY Gonzalez) Migraine HTN (hypertension) Anxiety and depression Surgical History Encounter for tubal ligation H/O section Family History Family/Other Breast cancer Social History Alcohol intake: never Patient Tobacco Use Status: Never used Tobacco Use of substances other than those prescribed or required for medical reasons: No Review of Systems Const Denies weight gain and Denies weight loss ENT Reports no additional complaints, Denies dysphagia and Denies odynophagia Card Reports no additional complaints Resp Reports no additional complaints GI Denies abdominal pain, Denies belching, Denies melena, Denies bloating, Denies change in bowel habits, Denies dysphagia, Denies excessive flatus, Denies dyspepsia, Denies heartburn, Denies diarrhea, Denies loose stools, Denies nausea, Denies odynophagia and Denies vomiting Musc Reports no additional complaints Neuro Reports no additional complaints Psych Reports no additional complaints Endo Reports no additional complaints Physical Exam Vital Signs: Last Vital Signs Pulse 92 12/03/24 14:16 BP 136/68 12/03/24 14:16 Pulse Ox 100 12/03/24 14:16 Oxygen Delivery Method Room Air 12/03/24 14:16 BMI result Body Mass Index 28.7 Const General: healthy appearing, no acute distress and well developed Nutritional Appearance: well nourished Orientation/consciousness: patient oriented x3 Resp Effort & Inspection: normal respiratory effort, able to speak in complete sentences, no tracheal deviation and symmetric chest movement Auscultation: clear to auscultation bilaterally Cardio Rate: regular rate GI Inspection: Yes normal to inspection and No distended Palpation (GI): Soft to palpation, not firm, nontender and No hepatosplenomegaly present Auscultation: normal bowel sounds General: Yes no CVA tenderness Back/Spine/Pelvis Back: no CVA tenderness Skin General skin exam: elasticity normal, turgor normal and dry skin Neuro General: patient oriented x3 Psych Appearance: grossly normal Mental Status: mental status grossly normal Assessment & Plan Assessment & Plan (1) Screen for colon cancer: Code(s): Z12.11 - Encounter for screening for malignant neoplasm of colon Plan Patient denies any GI, cardiac or respiratory symptoms.? Denies any issues with anesthesia in the past.? Denies any history of sleep apnea.? No history infectious diseases in the past or present.? Not on any anticoagulation therapy.? No family or personal history of colon cancer or polyps.? Patient denies melena, hematochezia, unintentional weight loss or ribbon like stools.? Discussed at length the pre-procedure,? prep, diet & medications as well as what to expect prior, during and after the procedure.?? Stressed the importance of good bowel prep.? Recommended the use of Vaseline or Calmoseptine OTC & baby wipes with bowel movements to promote comfort.? ?Patient verbalizes understanding and agrees to plan of care.? She was given the opportunity to ask questions and all questions answered.? We will see her after the procedure.? Medications: New bisacodyl (Dulcolax (bisacodyl)) take 4 tabs at noon the day before your colonoscopy 20 mg (4 x 5 mg) PO ONCE 4 tabs 0RF 1 day Z12.11 - Encounter for screening for malignant neoplasm of colon polyethylene glycol 3350 (Miralax) As directed by gastroenterology department at [facility] 238 grams PO ONCE 238 grams 0RF Z12.11 - Encounter for screening for malignant neoplasm of colon Coding Level of Care Code New Pt Level 3 (59918) Diagnoses Screen for colon cancer Z12.11 Time Spent (min) 40 Comment 30 minutes spent with patient and additional 10 minutes spent reviewing her records
--- OUTSIDE RECORDS SUMMARY | 2024-12-03 14:06 | XMS_ITS | Encounter Summary ---
Author Organization [employer] Address 75 [facility] 7t [place] [address] Care Team Providers Care Search Optimization Analyst Name Role Phone Lelia Marshall MD Primary Care Provider [phone] Reason for Visit * Reason Onset Date Comments Med Refill 08/07/2023 Encounter Details Date Type Department Care Team ([facility] st Contact Info) Description 08/07/2023 Refill [facility] MEDICINE [address] [place], [place] [phone] Andreina Haley MD [address] [place] [address] Social History Tobacco Use Types Packs/Day Years [...] Description 12/04/2024 10:30 AM EDT Office Visit [facility] OPT[facility]RY [address] [place], [place] [phone] Lilly Hoffmann, OD [address] [place] [address] documented as of this encounter Visit Diagnoses Not on filedocumented in this encounter Care Teams Search Optimization Analyst Relationship Specialty Start Date End Date Lelia Marshall MD [address] [place] [address] PCP - General Family Medicine 03/14/21 documented as of this encounter
--- OUTSIDE RECORDS SUMMARY | 2024-12-03 14:06 | XMS_ITS | Encounter Summary ---
Author Organization [employer] Address [address] [facility] [address]t [place] [address] Care Team Providers Care Photogeologist Name Role Phone Lelia Marshall MD Primary Care Provider Reason for Visit * Reason Onset Date Comments Med Refill 08/07/2023 Encounter Details Date Type Department Care Team ([facility] st Contact Info) Description 08/07/2023 Refill [facility] [address] [place], [place] [phone] Roshni Hinds FNP [address] [place] [address] Social History Tobacco Use Types Packs/Day Years [...] Description 12/04/2024 10:30 AM EDT Office Visit [facility] [address] [place] [address] Lilly Hoffmann, OD [address] [place] [address] documented as of this encounter Visit Diagnoses Not on filedocumented in this encounter Care Teams Photogeologist Relationship Specialty Start Date End Date Lelia Marshall MD [address] [place] [phone] PCP - General Family Medicine 03/14/21 documented as of this encounter
--- OUTSIDE RECORDS SUMMARY | 2024-12-03 14:06 | XMS_ITS | Encounter Summary ---
Author Organization [employer] Address [address] [facility] 7t [place] [address] Care Team Providers Care Quarter Folder Name Role Phone Lelia Marshall MD Primary Care Provider [phone] Reason for Visit * Reason Onset Date Comments Med Refill 08/07/2023 Encounter Details Date Type Department Care Team (Late st Contact Info) Description 08/07/2023 Refill [facility] MED & PEDS [address] [place] [address] Lelia Marshall MD [address] [place] [address] Migraine without status migrainosus, not intractable, unspecified [...] Description 12/04/2024 10:30 AM EDT Office Visit [facility] OPT[facility] [address] [place], [place] [phone] Lilly Hoffmann, OD [address] [place] [address] documented as of this encounter Visit Diagnoses Diagnosis Migraine without status migrainosus, not intractable, unspecified migraine type documented in this encounter Care Teams Quarter Folder Relationship Specialty Start Date End Date Lelia Marshall MD [address] [place] [address] PCP - General Family Medicine 03/14/21 documented as of this encounter
--- OUTSIDE RECORDS SUMMARY | 2024-12-03 14:06 | XMS_ITS | Encounter Summary ---
Author Organization [employer] Address [address] [facility] [address] 7t [place] [address] Care Team Providers Care Fender Mechanic Name Role Phone Lelia Marshall MD Primary Care Provider [phone] Reason for Visit * Reason Comments Med Refill Encounter Details Date Type Department Care Team ([facility] Contact Info) Description 12/01/2024 Refill [facility] [address] [place] [address] Cat Browning MD [address] [place] [address] Social History Tobacco Use Types Packs/Day Years [...] Description 12/04/2024 10:30 AM EDT Office Visit [facility] OPTOM[facility]RY [address] [place], [place] [phone] Lilly Hoffmann, OD [address] [place] [address] documented as of this encounter Visit Diagnoses Not on filedocumented in this encounter Care Teams Fender Mechanic Relationship Specialty Start Date End Date Lelia Marshall MD [address] [place] [phone] PCP - General Family Medicine 03/14/21 documented as of this encounter
--- OUTSIDE RECORDS SUMMARY | 2024-12-03 14:06 | XMS_ITS | Encounter Summary ---
Author Organization [employer] Address 75 [facility] 7t [place] [address] Care Team Providers Care Manager Business Intelligence Name Role Phone Lelia Marshall MD Primary Care Provider [phone] Reason for Visit * Reason Onset Date Comments Med Refill 03/26/2024 Encounter Details Date Type Department Care Team (Late st Contact Info) Description 03/26/2024 Refill [facility] MEDICINE 230 [place], [place] [phone] Stephen Kirk MD [address] [place] [address] Acute left-sided low back pain without sciatica [...] Description 12/04/2024 10:30 AM EDT Office Visit [facility] OPT[facility] [address] [place], [place] [phone] Lilly Hoffmann, OD [address] [place] [address] documented as of this encounter Visit Diagnoses Diagnosis Acute left-sided low back pain without sciatica documented in this encounter Care Teams Manager Business Intelligence Relationship Specialty Start Date End Date Lelia Marshall MD 230 [place] [address] PCP - General Family Medicine 03/14/21 documented as of this encounter
[2024-12-03 14:16] VITALS: BP 136/68; PULSE 92; O2SAT 100; BMI 28.7
== END 2024-12-03 15:02 | disposition home or self-care (01) ==
LOC: HO.HGI 14:02
PROVIDERS: PCP General Practice; Visit Provider Nurse Practitioner Family
DX: Z01.818 Encounter for other preprocedural examination (principal); Z12.11 Encounter for screening for malignant neoplasm of colon
CPT/HCPCS: 99203

== ENCOUNTER → 2024-12-03 14:02 | Outpatient (BNVA) | payer MEDICAID, SELFPAY | PROVIDERS: PCP General Practice; Visit Provider Nurse Practitioner Family | DX: Z01.818 Encounter for other preprocedural examination (principal) | CPT/HCPCS: 99212 ==

== ENCOUNTER 2025-05-29 16:15 | Outpatient (REF) | payer MEDICAID, SELFPAY ==
--- OUTSIDE RECORDS SUMMARY | 2025-05-29 11:00 | XMS_ITS | Encounter Summary ---
Author Organization [employer] Address [address] [facility] [address] [place] [address] Care Team Providers Care Radio Program Checker Name Role Phone Lelia Marshall MD Primary Care Provider [phone] Encounter Details Date Type Department Care Team ([facility] st Contact Info) Description 05/29/2025 11:00 AM EST Office Visit [facility] MEDICINE [address], [place] [phone] Lelia Marshall MD [address] [place], [place] [phone] Screening for colon cancer (Primary Dx); Cervical cancer screening; Essential hypertension; Encounter for immunization; Encounter for vaccination Social History Tobacco Use Types Packs/Day Years Used Date Smoking Tobacco: Never Passive Smoke Exposure: Never Smokeless Tobacco: Never Alcohol Use Standard Drinks/Week Comments Never 0 (1 standard drink = 0.6 oz pur e alcohol) Depression Answer Date Recorded Patient Health Questionnaire-9 Score 6 05/29/2025 Patient Health Questionnaire-9 Score 6 05/29/2025 Last PHQ-9: Questionnaire Data Not on file 1 07/29/2024 Housing Stability Answer Date Recorded What is [...] off services in your home? No 05/08/2023 Depression Answer Date Recorded Patient Health Questionnaire-2 Score 1 05/29/2025 Comments No Sex and Gender Information Value Date Recorded Sex Assigned at Female 05/22/2022 10:33 AM EDT Legal Sex Female 10:33 AM EDT Gender Identity Female 05/22/2022 10:33 AM EDT Sexual Orientation Straight 05/22/2022 10 :33 AM EDT documented as of this encounter Last Filed Vital Signs Vital Sign Reading Time Taken Comments Blood Pressure 118/64 05/29/2025 11:07 AM EST Pulse 93 05/29/2025 11:07 AM EST Temperature 36.5 C (97.7 F) 05/29/2025 11:07 AM EST Respiratory Rate 20 05/29/2025 11:07 AM EST Oxygen Saturation 96% 05/29/2025 11:07 AM EST Inhaled Oxygen Concentration - - Weight 75.1 kg (165 lb 9.6 oz) 05/29/2025 11:07 AM EST Height 167.6 cm (5' 6 ) 05/29/2025 11:07 AM EST Body Mass Index 26.73 05/29/2025 11:07 AM EST documented in this encounter Functional Status * Over the past 2 weeks, how often have you been bothered by any of the following problems? Question Answer Date of Assessment Author Patient Health Questionnaire-2 Score 1 01/2025 11:08 AM Melida Crooks MA * Little interest or pleasure in doing things Answer Date of Assessment Author Several days 05/29/2025 11:08 AM David Crooks MA * Feeling down, depressed, or hopeless Answer Date of Assessment Author Not at all 05/29/2025 11:08 AM David Crooks MA * Trouble falling or staying asleep, or sleeping too much Answer Date of Assessment Author More than half the days 05/29/2025 11:08 AM Melida Crooks MA * Feeling tired or having little energy Answer Date of Assessment Author More than half the days 05/29/2025 11:08 AM Melida Crooks MA * Poor appetite or overeating Answer Date of Assessment Author Not at all 05/29/2025 11:08 AM David Crooks MA * Feeling bad about yourself - or that you are a failure or have let yourself or your family down Answer Date of Assessment Author Not at all 05/29/2025 11:08 AM David Crooks MA * Trouble concentrating on things, such as reading the newspaper or watching television Answer Date of Assessment Author Not at all 05/29/2025 11:08 AM David Crooks MA * Moving or speaking so slowly that other people could have noticed? Or the opposite - being so fidgety or restless that you have been moving around a lot more than usual. Answer Date of Assessment Author Several days 05/29/2025 11:08 AM David Crooks MA * Thoughts that you would be better off or hurting yourself in some way Answer Date of Assessment Author Not at all 05/29/2025 11:08 AM David Crooks MA * Patient Health Questionnaire-9 Score Answer Date of Assessment Author 6 05/29/2025 11:08 AM David Crooks MA * How difficult have these problems made it for you to do your work, take care of things at home, or get along with other people? Answer Date of Assessment Author Somewhat difficult 05/29/2025 11:08 AM Melida Crooks MA * Over the last 2 weeks, how often have you been bothered by any of the following problems? Question Answer Date of Assessment Author Feeling nervous, anxious, or on edge 3 01/2025 11:08 AM Melida Crooks MA Not being able to stop or co ntrol worrying 3 05/29/2025 11:08 AM Melida Crooks MA Worrying too much about diff erent things 3 05/29/2025 11:08 AM Melida Crooks MA Trouble relaxing 2 05/29/2025 11:08 AM Melida Crooks MA Being so restless that it is hard to sit still 2 05/29/2025 11:08 AM Melida Crooks MA Becoming easily annoyed or irritable 1 01/2025 11:08 AM Melida Crooks MA Feeling afraid as if somethi ng awful might happen 0 05/29/2025 11:08 AM Melida Crooks MA PIYUSH-7 Total Score 14 05/29/2025 11:08 AM Melida Crooks MA documented as of this encounter Progress Notes * Lelia Marshall MD - 05/29/2025 11:00 AM EST SUBJECTIVE: Patience Cabrera is a 49 y.o. female who presents for chronic disease management. Denies recent illness, ER visit, or hospitalization. 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 Uterine fibroid asymptomatic FINDINGS: LMP: 05/16/2020 IMPRESSION: 1. Hypoechoic 1.2 x 1 x 1.2 cm myometrial focus, probable fibroid. 2. Small fluid in the lower uterine segment endometrial canal, nonspecific. 3. Left ovarian 1.3 cm complex cyst, probable corpus luteal cyst. SOB/asthma PFTs Date of test: 08/03/2020 SPIROMETRY: FEV1 2.10, 84%; FVC 2.32, 76%; FEV1/FVC 91.0%; PEFR 5.20, 84% Slow Vital Capacity: 2.32 76% LUNG VOLUMES (Box): TLC 3.19, 71%; FRC 2.02, 86%; RV 0.87, 62%; sGaw 0.17, predicted > 0.12 DIFFUSING CAPACITY: DLCO and KCO are 100% predicted adjusted for lung volume, barometric pressure DLCO 19.57, 91%; not adjusted for Hb INTERPRETATION: Spirometry suggest a mild restrictive defect. This finding is confirmed by a reduced total lung capacity.. The MVV is consistent with the level of FEV1. Lung volumes consistent with a mild restrictive defect. The carbon monoxide diffusing capacity is normal. Health maintenance: mammo- last 05/2021, Birads 2, DUE pap- ? 05/2020 at [facility] [place], normal per pt, completed HPV self-swab 05/29/25 colonscopy- referral placed and she went to pre-op visit 12/03/24 and [facility] never called her again Imms- Due for Flu, given today Patient Active Problem List Diagnosis Date Noted COVID-19 virus infection 02/11/2025 Low libido 08/23/2024 Fibromyalgia 10/30/2022 Palpitations 10/30/2022 Essential hypertension 10/30/2022 Restrictive lung disease 07/12/2022 Normal mammography 06/13/2021 Depressive disorder 03/30/2021 Migraine 03/16/2021 Cervical radiculopathy 12/26/2017 Idiopathic scoliosis 11/20/2017 Thoracic back pain 11/20/2017 Uterine leiomyoma 11/20/2017 Surgical History[1] Social History Social History Narrative Lives with AMAB partner 2 kids Review of Systems Constitutional: Negative. Respiratory: Negative. Cardiovascular: Negative. Gastrointestinal: Negative. Musculoskeletal: Negative. Skin: Negative. Psychiatric/Behavioral: Negative. OBJECTIVE: Vitals: 05/29/25 1107 BP: 118/64 BP Location: Left arm Patient Position: Sitting BP Cuff Size: Adult Pulse: 93 Resp: 20 Temp: 97.7 ??F (36.5 ??C) TempSrc: Oral SpO2: 96% Weight: 165 lb 9.6 oz (75.1 kg) Height: 5' 6 (1.676 m) Physical Exam Vitals and nursing note reviewed. Constitutional: Appearance: Normal appearance. HENT: Head: Normocephalic and atraumatic. Cardiovascular: Rate and Rhythm: Normal rate and regular rhythm. Pulses: Normal pulses. Heart sounds: Normal heart sounds. Pulmonary: Effort: Pulmonary effort is normal. Breath sounds: Normal breath sounds. Skin: General: Skin is warm and dry. Neurological: General: No focal deficit present. Mental Status: She is alert and oriented to person, place, and time. Psychiatric: Mood and Affect: Mood normal. Behavior: Behavior normal. ASSESSMENT/PLAN Problem List Items Addressed This Visit Essential hypertension Relevant Orders Comprehensive Metabolic Panel Hemoglobin A1c Lipid Panel, Standard Other Visit Diagnoses Screening for colon cancer - Primary Relevant Orders Cologuard?? colon cancer screening Cervical cancer screening Relevant Orders HPV DNA, Low/High Risk Encounter for immunization Relevant Orders FLU VACCINE TRIVALENT [id number] (Fluarix) 19 yrs + (Completed) Encounter for vaccination Relevant Orders COVID-19 VACCINE [id number] (Comirnaty) 19 yrs + (Completed) Follow Up: 9 months or sooner prn Allergies[2] Current Medications[3] Turkmen Translation: Provided by [facility] staff member CHIRAG Oneal [1] No past surgical history on file. [2] No Known Allergies [3] Current Outpatient Medications: buPROPion XL (Wellbutrin XL) 150 MG 24 hr tablet, Take 1 tablet (150 mg) by mouth Once per day. Forlibido, Disp: 30 tablet, Rfl: 11 fluticasone (Flonase) 50 MCG/ACT nasal spray, INSTILL 2 SPRAYS IN EACH NOSTRIL ONCE DAILY IN THE MORNING, Disp: 48 g, Rfl: 1 loratadine (Claritin) 10 MG tablet, TAKE 1 TABLET BY MOUTH EVERY DAY FOR NASAL CONGESTION, Disp: 90tablet, Rfl: 3 Mometasone Furoate (Asmanex HFA) 200 MCG/ACT aerosol, INHALE 2 PUFFS TWICE DAILY. RINSE MOUTH AFTERUSING., Disp: 13 g, Rfl: 11 naproxen (Naprosyn) 500 MG tablet, TAKE 1 TABLET BY MOUTH TWICE DAILY WITH BREAKFAST AND WITH DINNER, Disp: 60 tablet, Rfl: 1 SUMAtriptan (Imitrex) 50 MG tablet, TAKE 1 TABLET BY MOUTH AT ONSET OF MIGRAINE. MAY REPEAT ONCE AFTER 2 HOURS IF NEEDED DO NOT EXCEED 4 TABLETS PER 24 HOURS, Disp: 15 tablet, Rfl: 5 documented in this encounter Plan of Treatment Scheduled Orders Name Type Priority Associated Diagnoses Orde r Schedule Cologuard colon cancer screening Lab Routine Screening for colon cancer Ordered: 05/29/2025 HPV DNA, Low/High Risk Lab Routine Cervical cancer screening Expected: 05/29/2025 (Approximate), Expires: 05/29/2026 Comprehensive Metabolic Panel Lab Routine Essential hypertension Expected: 05/29/2025 (Approximate), Expires: 05/29/2026 Hemoglobin A1c Lab Routine Essential hypertension Expected: 05/29/2025 (Approximate), Expires: 05/29/2026 Lipid Panel, Standard Lab Routine Essential hypertension Expected: 05/29/2025 (Approximate), Expires: 05/29/2026 documented as of this encounter Visit Diagnoses Diagnosis Screening for colon cancer- Primary Special screening for malignant neoplasms, colon Cervical cancer screening Screening for malignant neoplasm of the cervix Essential hypertension Unspecified essential hypertension Encounter for immunization Encounter for vaccination documented in this encounter Additional Health Concerns Assessment Noted Time PHQ-9 Depression Total Score: 6 05/29/20 25 11:08 AM EST documented as of this encounter Care Teams Radio Program Checker Relationship Specialty Start Date End Date Lelia Marshall MD [address] [place] [id number] PCP - General Family Medicine 03/14/21 documented as of this encounter
--- OUTSIDE RECORDS SUMMARY | 2025-05-29 16:50 | XMS_ITS | Encounter Summary ---
Author Organization [employer] Address [address] [facility] 7t [place] [address] Care Team Providers Care Manager Of Merchandising Name Role Phone Lelia Marshall MD Primary Care Provider [phone] Reason for Visit * Reason Onset Date Comments Med Refill 08/07/2023 Encounter Details Date Type Department Care Team (Late st Contact Info) Description 08/07/2023 Refill [facility] [address] [place] [address] Lelia Marshall MD [address] [place] [address] Migraine without status migrainosus, not intractable, unspecified [...] as of this encounter Plan of Treatment Not on file documented as of this encounter Visit Diagnoses Diagnosis Migraine without status migrainosus, not intractable, unspecified migraine type documented in this encounter Care Teams Manager Of Merchandising Relationship Specialty Start Date End Date Lelia Marshall MD [address] [place] [address] PCP - General Family Medicine 03/14/21 documented as of this encounter
--- OUTSIDE RECORDS SUMMARY | 2025-05-29 16:50 | XMS_ITS | Encounter Summary ---
Author Organization [employer] Address [address] [facility] [address] [place] [address] Care Team Providers Care Chairman And Ceo Name Role Phone Lelia Marshall MD Primary Care Provider [phone] Reason for Visit * Reason Onset Date Comments chart prep 05/28/2025 Encounter Details Date Type Department Care Team ([facility] Contact Info) Description 05/28/2025 Telephone [facility] MEDICINE [address] [place], [place] [phone] Lelia Marshall MD [address] [place] [address] chart prep Social History Tobacco Use Types Packs/Day Years [...] encounter Miscellaneous Notes * Telephone Encounter - Lori Gibson MA - 05/28/2025 12:33 PM EST Chart Prep Labs: not applicable Images: not done No show to mammo Referrals: complete Vaccines due: Covid, Flu, and Hep B Screenings: colonoscopy, mammogram, and pap smear Overdue care gaps: SDOH, PHQ-9, PIYUSH-7, and Disability screen documented in this encounter Plan of Treatment Not on file documented as of this encounter Visit Diagnoses Not on filedocumented in this encounter Care Teams Chairman And Ceo Relationship Specialty Start Date End Date Lelia Marshall MD [address] [place] [id number] PCP - General Family Medicine 03/14/21 documented as of this encounter
--- OUTSIDE RECORDS SUMMARY | 2025-05-29 16:50 | XMS_ITS | Encounter Summary ---
Author Organization [employer] Address [address] [facility] 7t [place] [address] Care Team Providers Care Flag Signalman Name Role Phone Lelia Marshall MD Primary Care Provider [phone] Reason for Visit * Reason Onset Date Comments Med Refill 03/26/2024 Encounter Details Date Type Department Care Team (Late st Contact Info) Description 03/26/2024 Refill [facility] MEDICINE [address] [place], [place] [phone] Stephen Kirk MD [address] [place] [address] Acute left-sided low back pain without sciatica [...] sciatica documented in this encounter Care Teams Flag Signalman Relationship Specialty Start Date End Date Lelia Marshall MD [address] [place] [id number] PCP - General Family Medicine 03/14/21 documented as of this encounter
--- OUTSIDE RECORDS SUMMARY | 2025-05-29 16:50 | XMS_ITS | Encounter Summary ---
Author Organization [employer] Address [address] [facility] [address] [place] [address] Care Team Providers Care Fleet Dispatch Manager Name Role Phone Lelia Marshall MD Primary Care Provider [phone] Encounter Details Date Type Department Care Team (Latest Contact Info) Description 05/29/2025 Travel Social History Tobacco Use Types Packs/Day [...] AM EDT documented as of this encounter Functional Status * Over the [...] Crooks [place] documented as of this encounter Plan of Treatment Not on file documented as of this encounter Visit Diagnoses Not on filedocumented in this encounter Additional Health Concerns Assessment Noted Time PHQ-9 Depression Total Score: 6 05/29/20 25 11:08 AM EST documented as of this encounter Care Teams Fleet Dispatch Manager Relationship Specialty Start Date End Date Lelia Marshall MD [address] [place] [address] PCP - General Family Medicine 03/14/21 documented as of this encounter
--- OUTSIDE RECORDS SUMMARY | 2025-05-29 16:50 | XMS_ITS | Clinical Summary ---
Author Organization [employer] Address [address] [facility] [address] [place] [address] Care Team Providers Care Didactic Program In Dietetics Director Name Role Phone Lelia Marshall MD Primary Care Provider [phone] Allergies No known active allergies Medications fluticasone (Flonase) 50 MCG/ACT nasal sprayIndication s:Bronchitis INSTILL 2 SPRAYS IN EACH NOSTRIL ONCE DAILY IN THE MORNING 48 g 05/08/20 23 Active buPROPion XL (Wellbutrin XL) 150 MG 24 hr tablet Take 1 tablet (150 mg) by mouth Once per day. For libido 30 tablet 11 08/19/19 25 026 Active Mometasone Furoate (Asmanex HFA) 200 MCG/ACT aerosol INHALE 2 PUFFS TWICE DAILY. RINSE MOUTH AFTER USING. 13 g 11 12/03/19 25 Active loratadine (Claritin) 10 MG tablet TAKE 1 TABLET BY MOUTH EVERY DAY FOR NASAL CONGESTION 90 tablet 3 02/24/20 25 Active naproxen (Naprosyn) 500 MG tabletIndicatio ns:Acute left-sided low back pain without sciatica TAKE 1 TABLET BY MOUTH TWICE DAILY WITH BREAKFAST AND WITH DINNER 60 tablet 1 03/02/20 25 Active SUMAtriptan (Imitrex) 50 MG tabletIndicatio ns:Migraine without status migrainosus, not intractable, unspecified migraine type TAKE 1 TABLET BY MOUTH AT ONSET OF MIGRAINE. MAY REPEAT ONCE AFTER 2 HOURS IF NEEDED DO NOT EXCEED 4 TABLETS PER 24 HOURS 15 tablet 5 03/02/20 25 Active Nirmatrelvir&Ri tonavir 300/100 (Paxlovid, 300/100,) 20 x 150 MG & 10 x 100MG tablet therapy packIndications :Infection caused by 2019 Novel Coronavirus Take 3 tablets by mouth 2 times daily. Take 2 tabs (300mg of nirmatrelvir) and 1 tab (100mg of ritonavir) PO BID for 5 days. No renal failure. Possible medication interactions reviewed. 30 each 02/12/20 25 025 Discontin ued(Thera py completed ) Active Problems Problem Noted Date Diagnosed Date COVID-19 virus infection 02/11/2025 Assessment & Plan (02/11/2025 11:18 PM EDT): -COVID 19 here +,strep neg today w mild symptoms -last chem 2022 wnl Noted mild elevated diastolic BP and HR -likely from infection -pt has HTN and asthma within window x tx -normal renal function from last labs in 2022 -Px paxlovid today ( checked med interactions -explained med can decrease effect of Wellbutrin) -supportive tx -hydration -isolation x at least 5 days -request [place] to give to pt excuse letter and explained that if asymptomatic can return to work on day 6 but with N95 for at least 10 days from infection. -alarm signs and symptoms discussed -advised that once is feeling better to get COVID 19 vaccine Low libido 08/23/2024 Assessment & Plan (08/23/2024 [...] CBC Essential hypertension 10/30/2022 Assessment & Plan (02/11/2025 11:18 PM EDT): Noted elavted BP today mild diastolic like from infection but advied that once feeling betterand if ongoing elevated in mx times to schedule f up apt w PCP to monitor BP Assessment & Plan (08/23/2024 8:24 AM EST): Managed with diet and exercise Stop Amlodipine Assessment & Plan (10/30/2022 10:39 AM EDT): Monitor at home daily Start Amlodipine 2.5mg daily Restrictive lung disease 07/12/2022 Assessment & Plan (10/30/2022 10:36 AM EDT): Need to obtain PFTs Pt says she had abnl testing at [facility] in 2019 or 2020 Normal mammography [...] Encounters Date Type Department Care Team Description 05/29/2025 11:00 AM EST Office Visit [facility] [address] [place] [phone] Lelia Marshall MD Screening for colon cancer (Primary Dx); Cervical cancer screening; Essential hypertension; Encounter for immunization; Encounter for vaccination 05/29/2025 Travel 05/28/2025 Telephone [facility] [address] [place] [address] [phone] Lelia Marshall MD chart prep 03/26/2025 Telephone [facility] [address] [place] [address] [phone] Lelia Marshall MD Referral 03/24/2025 10:20 AM EDT Office Visit [facility] [address] [place] [phone] Name, MD Cristiano Frontal sinusitis, unspecified chronicity (Primary Dx); Acute sore throat; Cough, unspecified type; Sinus pain 03/24/2025 Travel 03/01/2025 Refill [facility] [address] [place] [address] Lelia Marshall MD Acute left-sided low back pain without sciatica; Migraine without status migrainosus, not intractable, unspecified migraine type from Last 3 Months Immunizations Immunization Administration Dates Next Due Influenza injectable quadriv alent preservative free 07/25/2021,07/13/2020 Influenza, seasonal, injecta ble, preservative free 05/29/2025,08/19/2024 Pfizer Covid-19 Vaccine 12+ 05/29/2025,0 09/01/2021,02/22/2021,2020 Tdap 07/13/2020 Family History Medical History Relation [...] Mass Index 26.73 05/29/2025 11:07 AM EST Plan of Treatment Health Maintenance Due Date Last Done Comments CT Colonography 1976 Colonoscopy 1976 Colorectal Cancer Screening 1976 FIT DNA/Cologuard 1976 FIT 1976 FOBT 1976 Sigmoidoscopy 1976 Hepatitis B Vaccines (1 of 3 - 19+ 3-dose series) 12/01/1995 Pap Smear 1997 Cervical Cancer Screening 2006 HPV/Cotest 2006 Mammogram 06/10/2022 06/10/2020, 05/23, 12/05/2017 SDOH Screening 07/12/2023 07/12/2022 Family Planning (PISQ) 08/23/2025 08/23/2024 Lipid Panel 02/03/2026 02/03/2021 Tobacco Screening 02/11/2026 02/11/2025 Alcohol/Substance Use Screening 05/29/2026 05/29/2025 Depression Screening 05/29/2026 05/29/2025, 05/29/20 25 Disability Screening 05/29/2026 05/29/2025 Zoster Vaccines (1 of 2) 2026 DTaP/Tdap/Td Vaccines (2 - Td or Tdap) 07/13/2030 07/13/2020 RSV Patients and Patients Aged 60 years or older (1 - 1-dose 75+ series) 12/01/2051 HIV Screening Completed 08/19/2024 Hepatitis C Screening Completed 08/19/2024 COVID-19 Vaccine Completed 05/29/2025, 04/2022, 02/22/2021, Additional history exists Influenza Vaccine Completed 05/29/2025, , 07/25/2021, Additional history exists HIB Vaccines Aged Out No longer eligi [...] Years) and At-Risk Patients (6 to 49) Years Aged Out No longer eligible based on patient's age to complete this topic RSV under 20 months Aged Out No longe r eligible based on patient's age to complete this topic Rotavirus Vaccines Aged Out No longer eligible based on patient's age to complete this topic Procedures Procedure Name Priority Date/Time Associated Diagnosis Comments POCT INFLUENZA B (ID NOW RAPID MOLECULAR) Routine 03/24/2025 10:43 AM EDT Acute sore throat Cough, unspecified type Sinus pain Frontal sinusitis, unspecified chronicity POCT INFLUENZA A (ID NOW RAPID MOLECULAR) Routine 03/24/2025 10:43 AM EDT Acute sore throat Cough, unspecified type Sinus pain Frontal sinusitis, unspecified chronicity POCT RAPID STREP A Routine 03/24/2025 10 :43 AM EDT Acute sore throat Cough, unspecified type Sinus pain Frontal sinusitis, unspecified chronicity POCT RAPID COVID ANTIGEN Routine 03/24/2025 10:43 AM EDT Acute sore throat Cough, unspecified type Sinus pain Frontal sinusitis, unspecified chronicity HEPATITIS C AB W/REFL TO HCV RNA, [...] Recently Relevant to Health Maintenance Results * Influenza B (ID NOW Rapid Molecular) (03/24/2025 10:43 AM EDT) Influenza B Negative Negative, Indeterminate [facility] Swab 03/24/2025 10:4 3 AM EDT us Cristiano Meyers MD POINT OF CARE TEST ENTER/EDIT OR DERABLES Final Result Performing Organization Address [facility] Co de Phone Number [facility] [address] [place] [phone] * Influenza A (ID NOW Rapid Molecular) (03/24/2025 10:43 AM EDT) Influenza A Negative Negative, Indeterminate [facility] Swab 03/24/2025 10:4 3 AM EDT us Cristiano Meyers MD POINT OF CARE TEST ENTER/EDIT OR DERABLES Final Result Performing Organization Address [facility] Co de Phone Number [facility] [address] [place] [phone] * POCT Rapid COVID Ag (03/24/2025 10:43 AM EDT) Rapid COVID Ag Negative [facility] Swab 03/24/2025 10:4 3 AM EDT Cristiano Meyers MD POINT OF CARE TEST ENTER/EDIT OR DERABLES Final Result Performing Organization Address [facility] Co de Phone Number [facility] [address] [place] [phone] * POCT rapid strep A manually resulted (03/24/2025 10:43 AM EDT) [facility] Rapid Strep A Screen Negative Negative, None Detected [facility] Swab 03/24/2025 10:4 3 AM EDT Cristiano Meyers MD POINT OF CARE TEST ENTER/EDIT OR DERABLES Final Result Performing Organization Address [facility] de Phone Number [facility] [address] [place] [phone] * Hepatitis C Antibody with Reflex to HCV, RNA, Quantitative, Real-Time PCR (08/19/2024 11:10 AM EST) [facility] Hepatitis C Antibody Nonreactive Nonreactive [facility] Comment:Antibodies to HCV no t detected; does not exclude early acuteHCV infection. Blood Venous blood specimen / Unknown 08/19/2024 11:10 AM EST 08/19/2024 1:22 PM EST Lelia Marshall MD LAB BLOOD ORDERABLES Final Res ult Performing Organization Address [facility] Co de Phone Number [facility] [address] [place] [phone] * HIV-1/2 Antigen and Antibodies, Fourth Generation, with Reflexes (08/19/2024 11:10 AM EST) [facility] HIV AB/AG Nonreactive Nonreactive [facility] Comment:HIV-1 p24 Ag and/or HIV-1/HIV-2 Ab not detected.A test result that is nonreactive does not exclude thepossibility of exposure to or infection with HIV-1 and/orHIV-2. Nonreactive results in this assay for individualswith prior exposure to HIV-1 and/or HIV-2 may be due toantigen and antibody levels that are below the limit ofdetection of this assay.The [facility] HIV Ag/Ab Combo assay result andsupplemental assay results should be interpreted inconjunction with the patient's clinical presentation,history and other laboratory results. If the results areinconsistent with clinical evidence, additional testing issuggested to confirm the result. Blood Venous blood specimen / Unknown 08/19/2024 11:10 AM EST 08/19/2024 1:22 PM EST us Lelia Marshall MD LAB BLOOD ORDERABLES Final Res ult [facility] [address] [place] [address] [phone] * (ABNORMAL) LIPID PANEL, STANDARD (02/03/2021 9:09 AM EDT) Chol/HDLC Ratio 2.4 <5.0 (calc) [facility] Cholesterol, Total 205(H) <200 mg/dL [facility] HDL Cholesterol 87 > OR = 50 mg/dL [facility] LDL Cholesterol 102(H) mg/dL (calc) [facility] Comment: Reference range: <100 Desirable range <100 mg/dL for primary prevention; <70 mg/dL for patients with CHD or diabetic patients with > or = 2 CHD risk factors. LDL-C is now calculated using the Jeferson-Marcel calculation, which is a validated novel method providing better accuracy than the Friedewald equation in the estimation of LDL-C. Jeferson PANG et al. VERÓNICA. 2013;310(19): 2142-6196 (http://education.[employer]ic[employer].410 Labs/faq/LSD197) Non-HDL Cholesterol 118 <130 mg/dL (calc) [facility] Comment: For patients with diabetes plus 1 major ASCVD risk factor, treating to a non-HDL-C goal of <100 mg/dL (LDL-C of <70 mg/dL) is considered a therapeutic option. Triglycerides 73 <150 mg/dL [facility] 02/03/2021 9:09 AM EDT Historical Provider LAB BLOOD ORDERABLES Dionna damon Result [facility] [address] * Mammography Report 1 (06/10/2020 10:40 AM EST) Anatomical Region Laterality Modality Breast Bilateral Mammography 06/10/2020 10:4 0 AM EST Narrative 06/13/2021 10:56 AM EST Refer to the Notes tab for result details [facility] Procedure: Mammography Report 1 Procedure Note ProviderMelissa MD - 10/14/2022 Refer to the Notes tab for result details [facility] Procedure: Mammography Report 1 Lelia Marshall MD IMG BI PROCEDURES Final Result from Last 3 Months or Most Recently Relevant to Health Maintenance Insurance 3 Care Teams Didactic Program In Dietetics Director Relationship Specialty Start Date End Date Lelia Marshall MD [address] [place] [phone] PCP - General Family Medicine 03/14/21
--- OUTSIDE RECORDS SUMMARY | 2025-05-29 16:50 | XMS_ITS | Encounter Summary ---
Author Organization [employer] Address [address] [facility] [address] [place] [address] Care Team Providers Care Supervisor Propellant Charge Loading Name Role Phone Lelia Marshall MD Primary Care Provider [phone] Reason for Visit * Reason Onset Date Comments Med Refill 08/07/2023 Encounter Details Date Type Department Care Team ([facility] st Contact Info) Description 08/07/2023 Refill [facility] [address] [place], [place] [phone] Roshni Hinds FNP [address] [place] [address] Social History Tobacco Use Types Packs/Day Years [...] on filedocumented in this encounter Care Teams Supervisor Propellant Charge Loading Relationship Specialty Start Date End Date Lelia Marshall MD [address] [place] [phone] PCP - General Family Medicine 03/14/21 documented as of this encounter
--- OUTSIDE RECORDS SUMMARY | 2025-05-29 16:50 | XMS_ITS | Encounter Summary ---
Author Organization [employer] Address [address] [facility] [address] [place] [address] Care Team Providers Care Supervisor Edging Name Role Phone Lelia Marshall MD Primary Care Provider [phone] Reason for Visit * Reason Onset Date Comments Med Refill 08/07/2023 Encounter Details Date Type Department Care Team ([facility] st Contact Info) Description 08/07/2023 Refill [facility] [address] [place], [place] [phone] Andreina Haley MD [address] [place] [address] Social History Tobacco Use Types Packs/Day Years [...] filedocumented in this encounter Care Teams Supervisor Edging Relationship Specialty Start Date End Date Lelia Marshall MD [address] [place] [phone] PCP - General Family Medicine 03/14/21 documented as of this encounter
== END 2025-05-29 16:16 | disposition home or self-care (01) ==
LOC: HO.HHCLNP 16:15
PROVIDERS: Visit Provider General Practice
DX: Z12.4 Encounter for screening for malignant neoplasm of cervix (principal); Z11.51 Encounter for screening for human papillomavirus (HPV)
CPT/HCPCS: 36415; 87626

== ENCOUNTER 2025-06-26 09:57 | Outpatient (REF) | payer MEDICAID, SELFPAY ==
[2025-06-26 12:23] LABS: Alanine Aminotransferase 11 U/L (0-31); Albumin Level 4.6 g/dL (3.5-5.0); Alkaline Phosphatase 58 U/L (39-117); Anion Gap 15 (12-20); Aspartate Amino Transferase 19 U/L (5-31); Blood Urea Nitrogen 19 mg/dL (9-16); Calcium 9.7 mg/dL (8.4-10.2); Carbon Dioxide 24 mmol/L (22-29); Chloride 108 mmol/L (96-108); Cholesterol 232 mg/dL (<200); Estimated Glomerular Filt Rate > 60; HDL Cholesterol 77 mg/dL (>40); Potassium 5.0 mmol/L (3.3-5.1); Sodium 142 mmol/L (135-145); Total Protein 8.3 g/dL (6.5-8.0); Triglycerides 92 mg/dL (<150)
== END 2025-06-26 09:58 | disposition home or self-care (01) ==
LOC: HO.HHCL 09:57
PROVIDERS: PCP General Practice; Visit Provider General Practice
DX: I10 Essential (primary) hypertension (principal)
CPT/HCPCS: 36415; 80053; 80061; 83036